=== PATIENT | female | born 1995 | race Hispanic/Latino ===

== ENCOUNTER 2024-10-24 22:39 | Emergency (ER) | payer SELFPAY ==
[2024-10-24 23:41] LABS: #Basophils 0.05 10x3/uL (0.0-0.2); #Eosinophils 0.08 10x3/uL (0.0-0.7); #Monocytes 0.68 10x3/uL (0.11-0.59); #Neutrophils 6.60 10x3/uL (1.40-6.50); %Basophils 0.5 % (0.0-1.0); %Eosinophils 0.7 % (0.0-10.0); %Lymphocytes 30.2 % (21.0-51.0); %Monocytes 6.4 % (0.0-10.0); %Neutrophils 61.8 % (42.0-75.0); Hematocrit 38.3 % (36.0-47.0); Hemoglobin 11.6 g/dL (12.0-16.0); Mean Corpuscular Hemoglobin 20.1 pg (27.0-31.0); Mean Corpuscular Volume 66.3 fL (78.0-98.0); Platelet Count 247 10x3/uL (130-400); Red Blood Cell (RBC) Count 5.78 mill/uL (4.20-5.40); White Blood Cell (WBC) Count 10.68 10x3/uL (4.8-10.8)
[2024-10-24 23:52] LABS: BHCG - Serum POSITIVE (NEGATIVE); Pregs Control Background? CLEAR/WHITE (CLR/WHITE); Pregs Control Bar Appear? YES (CONTROL BAR)
[2024-10-24 23:54] LABS: ALT (SGPT) 9 U/L (Less than 34); AST (SGOT) 26 U/L (11-34); Albumin 2.0 g/dL (3.1-4.5); Alkaline Phosphatase 189 U/L (40-110); Anion Gap 12 mmol/L (10-20); BUN (Urea Nitrogen) 14 mg/dL (7.0-18.7); Bilirubin, Total 0.3 mg/dL (0.3-1.2); Calc. Creatinine Clearance 0 mL/min (70-130); Calcium 7.4 mg/dL (7.8-10.44); Carbon Dioxide 19 mmol/L (22-29); Chloride 109 mmol/L (98-107); Globulin 3.3 g/dL (2.4-3.5); Glucose 100 mg/dL (70-105); Lipase 27 U/L (8-78); Magnesium 2.1 mg/dL (1.6-2.6); Potassium 4.1 mmol/L (3.5-5.1); Sodium 136 mmol/L (136-145)
[2024-10-24 23:57] LABS: INR-International Normal Ratio 1.0; PTT 32.8 sec (22.9-36.1); Prothrombin Time 12.8 sec (12.0-14.7)
[2024-10-25] MEDS ORDERED: hydrALAZINE 20 MG/ML VIAL ONE (00:47)
[2024-10-25 01:33] LABS: Bacteria/HPF 2+ HPF (None Seen); CAUTI Indications for Culture Urological Procedure; Glucose, Urine (Dipstick) Normal (Negative); Leukocyte Negative Leu/uL (Negative); Protein, Urine (Dipstick) 200 mg/dL (Neg-Trace); RBC/HPF 0-3 HPF (0-3); Specific Gravity, Urine 1.008 (1.002-1.036)
[2024-10-25 01:34] LABS: Urine Culture Reflex Yes Yes
== END 2024-10-25 01:31 | disposition short-term general hospital (02) ==
LOC: ERS 22:39
DX: O10.912 Unspecified pre-existing hypertension complicating pregnancy, second trimester (principal); Z3A.27 27 weeks gestation of pregnancy
CPT/HCPCS: 51702; 76705; 76805; 80053; 81001; 82570; 83010; 83615; 83690; 83735; 84156; 84702; 84703; 85025; 85610; 85730; 87086; 93005; 96365; 96366; 96375; 96376; J0360; J3475